=== PATIENT | female | born 1985 | race Caucasian/White ===

== ENCOUNTER 2016-10-26 03:16 | Emergency (ER) | payer OTHER ==
[2016-10-26] MEDS ORDERED: ONDANSETRON 4 MG/2 ML VIAL IVP STA (03:34)
[2016-10-26] MEDS ORDERED: SODIUM CHLORIDE 0.9% 1,000 ML IV STA ×2 (03:34)
[2016-10-26] MEDS ORDERED: KETOROLAC 30 MG/ML 1 ML VIAL IVP STA (03:35)
--- NOTE | 2016-10-26 03:41 | ED ---
Abdominal Pain HPI - General Chief Complaint: Abdominal Pain Stated Complaint: abd pain Time Seen by Provider: 10/26/16 03:20 Source: patient, RN notes reviewed Mode of arrival: ambulatory Limitations: no limitations - History of Present Illness Initial Comments: This is a 31-year-old female with a history of appendectomy and tubal ligation past who states she had the onset at about 9 PM last evening of mid abdominal sharp pain 10/10 severity with 5 episodes of nausea vomiting. She's had no diarrhea patient. She states last time she had pain like that was with labor. She has had no fevers chills sweats or other symptoms. She has no prior history of gallbladder disease or ulcers. No history of kidney stones. She points to the midepigastric area. She states she doesn't drink alcohol very often the last alcohol consumption was 4 days ago and that was only 2 drinks. She voices no other complaints at this time. No dysuria no hematuria. MD Complaint: abdominal pain - Related Data Previous Rx's Medication Instructions Recorded Dicyclomine [Bentyl] 10 mg PO TID PRN #10 capsule 10/26/16 Allergies Allergy/AdvReac Type Severity Reaction Status Date / Time No Known Allergies Allergy Verified 10/26/16 03:24 Review of Systems ROS Statement: Those systems with pertinent positive or pertinent negative responses have been documented in the HPI. ROS Other: All systems not noted in ROS Statement are negative. Past Medical History Past Medical History: No Reported History History of Any Multi-Drug Resistant Organisms: None Reported Past Surgical History: Appendectomy Additional Past Surgical History / Comment(s): partial fallopian tube Past Psychological History: No Psychological Hx Reported Smoking Status: Never smoker Past Alcohol Use History: None Reported Past Drug Use History: None Reported General Exam - General Exam Comments Initial Comments: This is a well-developed well-nourished awake alert oriented 3 female Limitations: no limitations General appearance: alert, anxious, in distress Head exam: Present: atraumatic, normocephalic, normal inspection Eye exam: Present: normal appearance, PERRL, EOMI. Absent: scleral icterus, conjunctival injection, periorbital swelling ENT exam: Present: normal exam, mucous membranes moist Neck exam: Present: normal inspection. Absent: tenderness, meningismus, lymphadenopathy Respiratory exam: Present: normal lung sounds bilaterally. Absent: respiratory distress, wheezes, rales, rhonchi, stridor Cardiovascular Exam: Present: regular rate, normal rhythm, normal heart sounds. Absent: systolic murmur, diastolic murmur, rubs, gallop, clicks GI/Abdominal exam: Present: soft, tenderness (Mild epigastric and right upper quadrant area tenderness palpation no guarding rebound masses or bruits), normal bowel sounds. Absent: distended, guarding, rebound, rigid Rectal exam: Present: deferred Extremities exam: Present: normal inspection, full ROM, normal capillary refill. Absent: tenderness, pedal edema, joint swelling, calf tenderness Back exam: Present: normal inspection Neurological exam: Present: alert, oriented X3, CN II-XII intact Psychiatric exam: Present: normal affect, normal mood Skin exam: Present: warm, dry, intact, normal color. Absent: rash Course Vital Signs 10/26/16 10/26/16 03:18 04:34 Temperature 97.2 F L Pulse Rate 83 67 Respiratory 20 18 Rate Blood Pressure 161/100 135/91 O2 Sat by Pulse 99 100 Oximetry - Reevaluation(s) Reevaluation #1: 10/26/16 04:47 Patient was feeling improved Medical Decision Making - Medical Decision Making Patient showing much improved this time and pain-free she'll be discharged - Lab Data Result diagrams: 10/26/16 03:40 10/26/16 03:40 Lab Results 10/26/16 10/26/16 10/26/16 Range/Units 03:40 03:40 03:40 WBC 15.5 H (3.8-10.6) k/uL RBC 4.89 (3.80-5.40) m/uL Hgb 13.5 (11.4-16.0) gm/dL Hct 39.4 (34.0-46.0) % MCV 80.5 (80.0-100.0) fL MCH 27.6 (25.0-35.0) pg MCHC 34.4 (31.0-37.0) g/dL RDW 13.5 (11.5-15.5) % Plt Count 358 (150-450) k/uL Neutrophils % 83 % Lymphocytes % 11 % Monocytes % 4 % Eosinophils % 1 % Basophils % 0 % Neutrophils # 12.9 H (1.3-7.7) k/uL Lymphocytes # 1.7 (1.0-4.8) k/uL Monocytes # 0.5 (0-1.0) k/uL Eosinophils # 0.1 (0-0.7) k/uL Basophils # 0.0 (0-0.2) k/uL Sodium 141 (137-145) mmol/L Potassium 4.2 (3.5-5.1) mmol/L Chloride 106 (98-107) mmol/L Carbon Dioxide 20 L (22-30) mmol/L Anion Gap 15 mmol/L BUN 12 (7-17) mg/dL Creatinine 0.60 (0.52-1.04) mg/dL Est GFR (MDRD) Af Amer >60 (>60 ml/min/1.73 sqM) Est GFR (MDRD) Non-Af >60 (>60 ml/min/1.73 sqM) Glucose 134 H (74-99) mg/dL Calcium 10.4 H (8.4-10.2) mg/dL Total Bilirubin 0.5 (0.2-1.3) mg/dL AST 33 (14-36) U/L ALT 39 (9-52) U/L Alkaline Phosphatase 102 (38-126) U/L Total Creatine Kinase 58 (30-135) U/L CK-MB (CK-2) 0.6 (0.0-2.4) ng/mL CK-MB (CK-2) Rel Index 1.0 Troponin I <0.012 (0.000-0.034) ng/mL Total Protein 7.8 (6.3-8.2) g/dL Albumin 4.6 (3.5-5.0) g/dL Amylase 44 (30-110) U/L Lipase 124 (23-300) U/L Urine Color Urine Appearance (Clear) Urine pH (5.0-8.0) Ur Specific Media (1.001-1.035) Urine Protein (Negative) Urine Glucose (UA) (Negative) Urine Ketones (Negative) Urine Blood (Negative) Urine Nitrite (Negative) Urine Bilirubin (Negative) Urine Urobilinogen (<2.0) mg/dL Ur Leukocyte Esterase (Negative) Ur Squamous Epith Cells (0-4) /hpf Amorphous Sediment (None) /hpf Urine Mucus (None) /hpf Urine HCG, Qual (Not Detectd) 10/26/16 10/26/16 Range/Units 03:49 03:49 WBC (3.8-10.6) k/uL RBC (3.80-5.40) m/uL Hgb (11.4-16.0) gm/dL Hct (34.0-46.0) % MCV (80.0-100.0) fL MCH (25.0-35.0) pg MCHC (31.0-37.0) g/dL RDW (11.5-15.5) % Plt Count (150-450) k/uL Neutrophils % % Lymphocytes % % Monocytes % % Eosinophils % % Basophils % % Neutrophils # (1.3-7.7) k/uL Lymphocytes # (1.0-4.8) k/uL Monocytes # (0-1.0) k/uL Eosinophils # (0-0.7) k/uL Basophils # (0-0.2) k/uL Sodium (137-145) mmol/L Potassium (3.5-5.1) mmol/L Chloride (98-107) mmol/L Carbon Dioxide (22-30) mmol/L Anion Gap mmol/L BUN (7-17) mg/dL Creatinine (0.52-1.04) mg/dL Est GFR (MDRD) Af Amer (>60 ml/min/1.73 sqM) Est GFR (MDRD) Non-Af (>60 ml/min/1.73 sqM) Glucose (74-99) mg/dL Calcium (8.4-10.2) mg/dL Total Bilirubin (0.2-1.3) mg/dL AST (14-36) U/L ALT (9-52) U/L Alkaline Phosphatase (38-126) U/L Total Creatine Kinase (30-135) U/L CK-MB (CK-2) (0.0-2.4) ng/mL CK-MB (CK-2) Rel Index Troponin I (0.000-0.034) ng/mL Total Protein (6.3-8.2) g/dL Albumin (3.5-5.0) g/dL Amylase (30-110) U/L Lipase (23-300) U/L Urine Color Yellow Urine Appearance Turbid H (Clear) Urine pH 8.0 (5.0-8.0) Ur Specific Media 1.015 (1.001-1.035) Urine Protein Trace H (Negative) Urine Glucose (UA) Negative (Negative) Urine Ketones Negative (Negative) Urine Blood Negative (Negative) Urine Nitrite Negative (Negative) Urine Bilirubin Negative (Negative) Urine Urobilinogen <2.0 (<2.0) mg/dL Ur Leukocyte Esterase Negative (Negative) Ur Squamous Epith Cells <1 (0-4) /hpf Amorphous Sediment Rare H (None) /hpf Urine Mucus Rare H (None) /hpf Urine HCG, Qual Not Detected (Not Detectd) - Radiology Data Radiology results: report reviewed (Imaging study shows no acute findings.), image reviewed Disposition Clinical Impression: Abdominal pain, Spastic colon Disposition: HOME SELF-CARE Condition: Good Instructions: Abdominal Pain (ED), Irritable Bowel Syndrome (ED) Prescriptions: Dicyclomine [Bentyl] 10 mg PO TID PRN #10 capsule PRN Reason: Pain Referrals: None,Stated [Primary Care Provider] - 1-2 days
[2016-10-26 03:49] LABS: Basophils % (A) 0 %; CH 27.7; CHCM 34.5; Eosinophils # (A) 0.1 k/uL (0-0.7); Eosinophils % (A) 1 %; HCT 39.4 % (34.0-46.0); HDW 2.58; HGB 13.5 gm/dL (11.4-16.0); Luc # (Auto) 0.21; Luc % (Auto) 1; Lymphocytes # (A) 1.7 k/uL (1.0-4.8); Lymphocytes % (A) 11 %; MCH 27.6 pg (25.0-35.0); MCHC 34.4 g/dL (31.0-37.0); MCV 80.5 fL (80.0-100.0); Monocytes # (A) 0.5 k/uL (0-1.0); Monocytes % (A) 4 %; Neutrophils # (A) 12.9 k/uL (1.3-7.7); Neutrophils % (A) 83 %; RBC 4.89 m/uL (3.80-5.40); RDW 13.5 % (11.5-15.5); WBC 15.5 k/uL (3.8-10.6); WBC (Perox) 15.24
[2016-10-26 03:59] LABS: ALT 39 U/L (9-52); AST 33 U/L (14-36); Alkaline Phosphatase 102 U/L (38-126); Amylase 44 U/L (30-110); Anion Gap 15 mmol/L; Blood Urea Nitrogen 12 mg/dL (7-17); Calcium 10.4 mg/dL (8.4-10.2); Carbon Dioxide 20 mmol/L (22-30); Chloride 106 mmol/L (98-107); Glucose 134 mg/dL (74-99); Non-African American GFR(MDRD) >60 (>60 ml/min/1.73 sqM); Potassium 4.2 mmol/L (3.5-5.1); Sodium 141 mmol/L (137-145); Total Bilirubin 0.5 mg/dL (0.2-1.3); Total Protein 7.8 g/dL (6.3-8.2)
[2016-10-26 04:01] LABS: Amorphous Sediment,Urine Rare /hpf; Appearance,Urine Turbid (Clear); Bilirubin,Urine Negative (Negative); Glucose,Urine (UA) Negative (Negative); Ketones,Urine Negative (Negative); Leukocyte Esterase,Urine Negative (Negative); Mucus,Urine Rare /hpf; Nitrite,Urine Negative (Negative); Particle Count 29799; Protein,Urine Trace (Negative); Specific Gravity,Urine 1.015 (1.001-1.035); Squamous Epithelial Cell,Urine <1 /hpf (0-4); UA Billing (MACRO vs. MICRO) MICRO; Urobilinogen,Urine <2.0 mg/dL (<2.0)
[2016-10-26 04:13] LABS: Creatine Kinase 58 U/L (30-135)
--- NOTE | 2016-10-26 04:25 | XR ---
EXAM: XR Abdomen Complete With XR Chest CLINICAL HISTORY: Reason: Pain TECHNIQUE: Frontal view of the chest, frontal view of the abdomen/pelvis and upright view of the abdomen. COMPARISON: No relevant prior studies available. FINDINGS: Lungs: Unremarkable. No consolidation. Pleural space: Unremarkable. No pneumothorax. Heart: Unremarkable. No cardiomegaly. Mediastinum: Unremarkable. Gastrointestinal tract: Moderate amount of stool in the colon. No dilation. Bones/joints: Unremarkable. IMPRESSION: No acute findings.
[2016-10-26 04:26] LABS: Creatine Kinase MB 0.6 ng/mL (0.0-2.4); Troponin I <0.012 ng/mL (0.000-0.034)
[2016-10-26 04:35] VITALS: BP 135/91; PULSE 67; RESP 18
[2016-10-26 04:58] VITALS: TEMP 98.6
== END 2016-10-26 04:58 | disposition home or self-care (01) ==
LOC: EC 03:16
DX: K58.9 Irritable bowel syndrome, unspecified (principal); R11.2 Nausea with vomiting, unspecified; Z98.51 Tubal ligation status; Z90.49 Acquired absence of other specified parts of digestive tract
CPT/HCPCS: 36415; 80053; 82150; 82550; 82553; 83690; 84484; 85025; 81001; 81025; 74022; 99284; 96374; 96375; 96361; J2405; J1885

== ENCOUNTER 2020-08-02 17:10 | Inpatient (IN) | payer OTHER ==
[2020-08-02 17:59] LABS: Basophils % (A) 1 %; Eosinophils # (A) 0.1 k/uL (0-0.7); Eosinophils % (A) 1 %; HCT 39.6 % (34.0-46.0); HGB 13.7 gm/dL (11.4-16.0); Lymphocytes # (A) 1.1 k/uL (1.0-4.8); Lymphocytes % (A) 13 %; MCH 27.3 pg (25.0-35.0); MCHC 34.5 g/dL (31.0-37.0); MCV 79.1 fL (80.0-100.0); Mean Platelet Volume 6.8; Monocytes # (A) 0.3 k/uL (0-1.0); Monocytes % (A) 3 %; Neutrophils # (A) 6.9 k/uL (1.3-7.7); Neutrophils % (A) 81 %; Platelet Count 437 k/uL (150-450); RDW 13.6 % (11.5-15.5); WBC 8.5 k/uL (3.8-10.6)
[2020-08-02 18:06] LABS: Amorphous Sediment,Urine Rare /hpf; Appearance,Urine Turbid (Clear); Bilirubin,Urine Negative (Negative); Blood,Urine Negative (Negative); Calcium Oxalate Crystals,Urine Few /hpf; Color,Urine Yellow; Glucose,Urine (UA) Negative (Negative); Ketones,Urine Trace (Negative); Leukocyte Esterase,Urine Negative (Negative); Mucus,Urine Rare /hpf; Nitrite,Urine Negative (Negative); Protein,Urine 1+ (Negative); RBC,Urine 3 /hpf (0-5); Specific Gravity,Urine 1.016 (1.001-1.035); Urobilinogen,Urine <2.0 mg/dL (<2.0); WBC,Urine 1 /hpf (0-5)
[2020-08-02 18:11] LABS: ALT 518 U/L (4-34); AST 615 U/L (14-36); African American GFR (CKD) >90 (>60 ml/min/1.73 sqM); Albumin 4.9 g/dL (3.5-5.0); Alkaline Phosphatase 169 U/L (38-126); Amylase 58 U/L (30-110); Anion Gap 14 mmol/L; Blood Urea Nitrogen 11 mg/dL (7-17); Calcium 10.2 mg/dL (8.4-10.2); Carbon Dioxide 22 mmol/L (22-30); Chloride 105 mmol/L (98-107); Glucose 148 mg/dL (74-99); Lipase 207 U/L (23-300); Non-African American GFR(CKD) >90 (>60 ml/min/1.73 sqM); Potassium 3.8 mmol/L (3.5-5.1); Sodium 141 mmol/L (137-145); Total Bilirubin 1.7 mg/dL (0.2-1.3); Total Protein 8.1 g/dL (6.3-8.2)
[2020-08-02] MEDS ORDERED: HYDROmorphone 0.5 MG/0.5 ML SYRINGE IVP STA (18:36)
[2020-08-02] MEDS ORDERED: ONDANSETRON 4 MG/2 ML VIAL IVP STA (18:37)
--- NOTE | 2020-08-02 18:37 | ED ---
General Adult HPI - General Chief complaint: Abdominal Pain Stated complaint: Abd pain Time Seen by Provider: 08/02/20 17:20 Source: patient, RN notes reviewed, old records reviewed Mode of arrival: wheelchair Limitations: no limitations - History of Present Illness Initial comments: This is a 35-year-old female with past medical history significant for removal of the fallopian tube and appendectomy. Patient comes in today stating last evening she was a little bit nauseated but then today about 1:00 she started having pretty significant epigastric abdominal pain which she states feels a lot like labor. Patient states she's very nauseated but hasn't vomited. Patient denies any diarrhea per patient denies any lower abdominal pain. Patient denies any chest pain difficulty breathing or shortness of breath per patient denies any fever chills or cough. - Related Data Home Medications Medication Instructions Recorded Confirmed Ferrous Sulfate [Feosol] 325 mg PO DAILY 08/02/20 08/02/20 L.acidoph,Paracasei, B.lactis 1 cap PO DAILY 08/02/20 08/02/20 [Probiotic] Magnesium Oxide 400 mg PO DAILY 08/02/20 08/02/20 Multivitamins, Thera [Multivitamin 1 tab PO DAILY 08/02/20 08/02/20 (formulary)] Allergies Allergy/AdvReac Type Severity Reaction Status Date / Time No Known Allergies Allergy Verified 08/02/20 19:54 Review of Systems ROS Statement: Those systems with pertinent positive or pertinent negative responses have been documented in the HPI. ROS Other: All systems not noted in ROS Statement are negative. Past Medical History Past Medical History: No Reported History History of Any Multi-Drug Resistant Organisms: None Reported Past Surgical History: Appendectomy Additional Past Surgical History / Comment(s): partial fallopian tube Past Psychological History: No Psychological Hx Reported Smoking Status: Never smoker Past Alcohol Use History: None Reported Past Drug Use History: None Reported General Exam - General Exam Comments Initial Comments: GENERAL: Patient is well-developed and well-nourished. Patient is nontoxic and well- hydrated and is in mild distress. ENT: Neck is soft and supple. No significant lymphadenopathy is noted. Oropharynx is clear. Moist mucous membranes. Neck has full range of motion without eliciting any pain. EYES: The sclera were anicteric and conjunctiva were pink and moist. Extraocular movements were intact and pupils were equal round and reactive to light. Eyelids were unremarkable. PULMONARY: Unlabored respirations. Good breath sounds bilaterally. No audible rales rhonchi or wheezing was noted. CARDIOVASCULAR: There is a regular rate and rhythm without any murmurs gallops or rubs. ABDOMEN: Patient has mild epigastric abdominal pain there's no rebound or guarding SKIN: Skin is clear with no lesions or rashes and otherwise unremarkable. NEUROLOGIC: Patient is alert and oriented x3. Cranial nerves II through XII are grossly intact. Motor and sensory are also intact. Normal speech, volume and content. Symmetrical smile. MUSCULOSKELETAL: Normal extremities with adequate strength and full range of motion. No lower extremity swelling or edema. No calf tenderness. LYMPHATICS: No significant lymphadenopathy is noted PSYCHIATRIC: Normal psychiatric evaluation. Limitations: no limitations Course Vital Signs 08/02/20 17:18 Temperature 97.4 F L Pulse Rate 78 Respiratory 24 Rate Blood Pressure 176/105 O2 Sat by Pulse 100 Oximetry Medical Decision Making - Medical Decision Making Patient did receive some relief from the Dilaudid. Ultrasound showed a dilated gallbladder consistent with possible cholecystitis. I spoke with Dr. Mello she agreed to admit the patient admitted the patient wrote admitting orders. - Lab Data Result diagrams: 08/02/20 17:45 08/02/20 17:45 Lab Results 08/02/20 08/02/20 08/02/20 Range/Units 17:45 17:45 17:45 WBC 8.5 (3.8-10.6) k/uL RBC 5.00 (3.80-5.40) m/uL Hgb 13.7 (11.4-16.0) gm/dL Hct 39.6 (34.0-46.0) % MCV 79.1 L (80.0-100.0) fL MCH 27.3 (25.0-35.0) pg MCHC 34.5 (31.0-37.0) g/dL RDW 13.6 (11.5-15.5) % Plt Count 437 (150-450) k/uL MPV 6.8 Neutrophils % 81 % Lymphocytes % 13 % Monocytes % 3 % Eosinophils % 1 % Basophils % 1 % Neutrophils # 6.9 (1.3-7.7) k/uL Lymphocytes # 1.1 (1.0-4.8) k/uL Monocytes # 0.3 (0-1.0) k/uL Eosinophils # 0.1 (0-0.7) k/uL Basophils # 0.0 (0-0.2) k/uL Sodium 141 (137-145) mmol/L Potassium 3.8 (3.5-5.1) mmol/L Chloride 105 (98-107) mmol/L Carbon Dioxide 22 (22-30) mmol/L Anion Gap 14 mmol/L BUN 11 (7-17) mg/dL Creatinine 0.66 (0.52-1.04) mg/dL Est GFR (CKD-EPI)AfAm >90 (>60 ml/min/1.73 sqM) Est GFR (CKD-EPI)NonAf >90 (>60 ml/min/1.73 sqM) Glucose 148 H (74-99) mg/dL Calcium 10.2 (8.4-10.2) mg/dL Total Bilirubin 1.7 H (0.2-1.3) mg/dL AST 615 H (14-36) U/L ALT 518 H (4-34) U/L Alkaline Phosphatase 169 H (38-126) U/L Total Protein 8.1 (6.3-8.2) g/dL Albumin 4.9 (3.5-5.0) g/dL Amylase 58 (30-110) U/L Lipase 207 (23-300) U/L Urine Color Yellow Urine Appearance Turbid H (Clear) Urine pH 8.0 (5.0-8.0) Ur Specific Downs 1.016 (1.001-1.035) Urine Protein 1+ H (Negative) Urine Glucose (UA) Negative (Negative) Urine Ketones Trace H (Negative) Urine Blood Negative (Negative) Urine Nitrite Negative (Negative) Urine Bilirubin Negative (Negative) Urine Urobilinogen <2.0 (<2.0) mg/dL Ur Leukocyte Esterase Negative (Negative) Urine RBC 3 (0-5) /hpf Urine WBC 1 (0-5) /hpf Calcium Oxalate Crystal Few H (None) /hpf Amorphous Sediment Rare H (None) /hpf Urine Mucus Rare H (None) /hpf Disposition Clinical Impression: Cholecystitis, Cholelithiasis Disposition: ADMITTED IP TO THIS [facility] Referrals: None,Stated [Primary Care Provider] - 1-2 days Time of Disposition: 20:33
[2020-08-02] MEDS ORDERED: SODIUM CHLORIDE 0.9% 500 ML 500 ML IV ONE (18:47)
--- NOTE | 2020-08-02 19:45 | US ---
EXAMINATION TYPE: US gallbladder DATE OF EXAM: 08/02/2020 COMPARISON: NONE CLINICAL HISTORY: Upper abdominal pain with elevated liver enzymes. Pain and elevated liver enzymes. Hx appendectomy. EXAM MEASUREMENTS: Liver Length: 17.5 cm Gallbladder Wall: 0.29 cm CBD: Not seen with certainty, measured at 0.3 cm Right Kidney: 11.1 x 6.8 x 5.3 cm Limited due to overlying bowel gas. Pancreas: Very limited visibility. Liver: Appears heterogeneous. Measures upper limits of normal. Gallbladder: Appears distended measuring 11.2 cm in length. Multiple hyperechoic foci with posterior shadowing and twinkle artifact seen within the gallbladder. Evidence for sonographic Goodman's sign: No CBD: Limited visibility, measured at 0.3 cm. Right Kidney: No hydronephrosis or masses seen IMPRESSION: Multiple gallstones. No dilated ducts. No discrete liver mass. Gallbladder is slightly enlarged and m easures 11.2 cm in length. Cholecystitis is possible.
[2020-08-02] MEDS ORDERED: SODIUM CHLORIDE 0.9% 1,000 ML IV ONE ×2 (20:34→21:19)
[2020-08-02] MEDS ORDERED: ONDANSETRON 4 MG/2 ML VIAL IVP PRN (20:35)
[2020-08-02] MEDS ORDERED: NALOXONE 0.4 MG/ML 1 ML VIAL IV PRN (21:12)
[2020-08-02] MEDS: PIPERACILLIN-TAZOBACTAM 3.375 GM in SODIUM CHLORIDE 0.9% 100 ML IVPB SCH (21:53)
[2020-08-02] MEDS: HYDROmorphone 0.5 MG/0.5 ML SYRINGE IVP PRN (23:02)
[2020-08-03] MEDS: PIPERACILLIN-TAZOBACTAM 3.375 GM in SODIUM CHLORIDE 0.9% 100 ML IVPB SCH ×3 (05:38→23:42)
[2020-08-03] MEDS ORDERED: SCOPOLAMINE 1.5MG/72HR PATCH TRANSDERM SCH (07:00)
[2020-08-03 07:26] LABS: Basophils % (A) 0 %; Eosinophils # (A) 0.1 k/uL (0-0.7); Eosinophils % (A) 1 %; HCT 37.6 % (34.0-46.0); HGB 12.1 gm/dL (11.4-16.0); Lymphocytes # (A) 1.6 k/uL (1.0-4.8); Lymphocytes % (A) 16 %; MCH 26.2 pg (25.0-35.0); MCHC 32.1 g/dL (31.0-37.0); MCV 81.5 fL (80.0-100.0); Mean Platelet Volume 6.6; Monocytes # (A) 0.6 k/uL (0-1.0); Monocytes % (A) 5 %; Neutrophils # (A) 8.1 k/uL (1.3-7.7); Neutrophils % (A) 77 %; Platelet Count 379 k/uL (150-450); RBC 4.61 m/uL (3.80-5.40); RDW 13.9 % (11.5-15.5); WBC 10.5 k/uL (3.8-10.6)
[2020-08-03 07:44] LABS: ALT 462 U/L (4-34); AST 297 U/L (14-36); African American GFR (CKD) >90 (>60 ml/min/1.73 sqM); Albumin 4.2 g/dL (3.5-5.0); Alkaline Phosphatase 148 U/L (38-126); Anion Gap 10 mmol/L; Blood Urea Nitrogen 12 mg/dL (7-17); Calcium 9.3 mg/dL (8.4-10.2); Carbon Dioxide 25 mmol/L (22-30); Chloride 106 mmol/L (98-107); Glucose 124 mg/dL (74-99); Non-African American GFR(CKD) >90 (>60 ml/min/1.73 sqM); Potassium 4.3 mmol/L (3.5-5.1); Sodium 141 mmol/L (137-145); Total Bilirubin 1.2 mg/dL (0.2-1.3); Total Protein 7.2 g/dL (6.3-8.2)
[2020-08-03 08:18] LABS: Hepatitis A Antibody IgM Non-Reactive (Non-Reactive); Hepatitis B Core IgM Non-Reactive (Non-Reactive); Hepatitis B Surface Antigen Non-Reactive (Non-Reactive); Hepatitis C IgG Antibody Non-Reactive (Non-Reactive)
[2020-08-03] MEDS: HEPARIN SODIUM,PORCINE/PF 5,000 UNIT/0.5 ML SYRINGE SQ SCH ×2 (08:58→22:29)
--- NOTE | 2020-08-03 12:17 | P.GSHP ---
History of Present Illness H&P Date: 08/03/20 CHIEF COMPLAINT: Cholecystitis with choledocholithiasis HISTORY OF PRESENT ILLNESS: The patient is a 35-year-old female who presents with history of epigastric including right upper quadrant abdominal pain that started yesterday after eating fatty greasy food. Her pain radiated to the right upper quadrant and 10 out of 10 rate into the right upper back. Just resistant history of gallstones last attack over 2 years ago. She presented with elevated liver enzymes including transaminitis from gallstones. She underwent diagnostic studies for her gallbladder. Separately her clinical picture is consistent with cholecystitis. Patient is admitted for immediate surgical intervention PAST MEDICAL HISTORY: Please see list PAST SURGICAL HISTORY: Please see list MEDICATIONS: Please see list ALLERGIES: Please see list SOCIAL HISTORY: Please see list FAMILY HISTORY: Please see list REVIEW OF ORGAN SYSTEMS: CONSTITUTIONAL: No reports of fevers or chills. HEENT: Denies any troubles with the vision or hearing. ENDOCRINE: No reports of hypothyroidism. No diabetes. RESPIRATORY: No recent pneumonias. CARDIOVASCULAR: Denies chest pain or palpitations GI: No blood in stools or constipation. MUSCULOSKELETAL: Has occasional joint pain including back pain. NEURO: No seizure disorders or headaches. No recent stroke. PSYCH: No depression or suicidal ideation. GENITOURINARY: No active blood in urine. No urinary hesitancy. HEMATOLOGIC: No personal or family history of DVTs or pulmonary emboli. SKIN: No skin cancer. PHYSICAL EXAM: VITAL SIGNS: Afebrile vital signs stable GENERAL: Well-developed pleasant in no acute distress. HEENT: No scleral icterus. Extraocular movements grossly intact. Moist buccal mucosa. NECK: Supple without lymphadenopathy. CHEST: Unlabored respirations. Equal bilateral excursions. CARDIOVASCULAR: Regular rate regular rhythm rhythm. Distal 2+ pulses. ABDOMEN: Soft, nondistended. Tender along the epigastrium and right upper quadrant. MUSCULOSKELETAL: No clubbing, cyanosis, or edema. NEURO: Cranial nerves II to XII within normal limits. No focal or lateralizing signs. PSYCH: Alert and oriented to person, place and time. SKIN: Well-perfused good skin turgor. LABS: Alkaline phosphatase including ALT and AST are elevated over 100. WBC also increased from over 8 to over 10 STUDIES: Ultrasound the gallbladder independently reviewed demonstrating multiple mobile gallstones. This is my independent interpretation. REPORT: Common bile duct within normal limits less than 5 mm ASSESSMENT: 1. Acute cholecystitis with cystic duct obstruction 2. Transaminitis with changes choledocholithiasis PLAN: 1. Will need a robotic cholecystectomy possible open. Benefits and risks were described. 2. Heparin for DVT prophylaxis 5000 units. 3. Antibiotic prophylaxis. Past Medical History Past Medical History: No Reported History History of Any Multi-Drug Resistant Organisms: None Reported Past Surgical History: Appendectomy Additional Past Surgical History / Comment(s): partial fallopian tube taken out at time of appendectomy Past Anesthesia/Blood Transfusion Reactions: No Reported Reaction Smoking Status: Former smoker - Past Family History Father Family Medical History: Eye Disorder, Hypertension, Thyroid Disorder Additional Family Medical History / Comment(s): Eye cancer, heart cath Medications and Allergies Home Medications Medication Instructions Recorded Confirmed Type Ferrous Sulfate [Feosol] 325 mg PO DAILY 08/02/20 08/02/20 History L.acidoph,Paracasei, B.lactis 1 cap PO DAILY 08/02/20 08/02/20 History [Probiotic] Magnesium Oxide 400 mg PO DAILY 08/02/20 08/02/20 History Multivitamins, Thera [Multivitamin 1 tab PO DAILY 08/02/20 08/02/20 History (formulary)] Allergies Allergy/AdvReac Type Severity Reaction Status Date / Time No Known Allergies Allergy Verified 08/02/20 19:54 Surgical - Exam Vital Signs Temp Pulse Resp BP Pulse Ox 97.4 F L 78 24 176/105 100 08/02/20 17:18 08/02/20 17:18 08/02/20 17:18 08/02/20 17:18 08/02/20 17:18 Results - Labs 08/03/20 06:35 08/03/20 06:35 Abnormal Lab Results - Last 24 Hours (Table) 08/02/20 08/02/20 08/02/20 Range/Units 17:45 17:45 17:45 MCV 79.1 L (80.0-100.0) fL Neutrophils # (1.3-7.7) k/uL Glucose 148 H (74-99) mg/dL Total Bilirubin 1.7 H (0.2-1.3) mg/dL AST 615 H (14-36) U/L ALT 518 H (4-34) U/L Alkaline Phosphatase 169 H (38-126) U/L Urine Appearance Turbid H (Clear) Urine Protein 1+ H (Negative) Urine Ketones Trace H (Negative) Calcium Oxalate Crystal Few H (None) /hpf Amorphous Sediment Rare H (None) /hpf Urine Mucus Rare H (None) /hpf 08/03/20 08/03/20 Range/Units 06:35 06:35 MCV (80.0-100.0) fL Neutrophils # 8.1 H (1.3-7.7) k/uL Glucose 124 H (74-99) mg/dL Total Bilirubin (0.2-1.3) mg/dL AST 297 H (14-36) U/L ALT 462 H (4-34) U/L Alkaline Phosphatase 148 H (38-126) U/L Urine Appearance (Clear) Urine Protein (Negative) Urine Ketones (Negative) Calcium Oxalate Crystal (None) /hpf Amorphous Sediment (None) /hpf Urine Mucus (None) /hpf Diabetes panel 08/02/20 08/03/20 Range/Units 17:45 06:35 Sodium 141 141 (137-145) mmol/L Potassium 3.8 4.3 (3.5-5.1) mmol/L Chloride 105 106 (98-107) mmol/L Carbon Dioxide 22 25 (22-30) mmol/L BUN 11 12 (7-17) mg/dL Creatinine 0.66 0.81 (0.52-1.04) mg/dL Glucose 148 H 124 H (74-99) mg/dL Calcium 10.2 9.3 (8.4-10.2) mg/dL AST 615 H 297 H (14-36) U/L ALT 518 H 462 H (4-34) U/L Alkaline Phosphatase 169 H 148 H (38-126) U/L Total Protein 8.1 7.2 (6.3-8.2) g/dL Albumin 4.9 4.2 (3.5-5.0) g/dL Calcium panel 08/02/20 08/03/20 Range/Units 17:45 06:35 Calcium 10.2 9.3 (8.4-10.2) mg/dL Albumin 4.9 4.2 (3.5-5.0) g/dL Pituitary panel 08/02/20 08/03/20 Range/Units 17:45 06:35 Sodium 141 141 (137-145) mmol/L Potassium 3.8 4.3 (3.5-5.1) mmol/L Chloride 105 106 (98-107) mmol/L Carbon Dioxide 22 25 (22-30) mmol/L BUN 11 12 (7-17) mg/dL Creatinine 0.66 0.81 (0.52-1.04) mg/dL Glucose 148 H 124 H (74-99) mg/dL Calcium 10.2 9.3 (8.4-10.2) mg/dL Adrenal panel 08/02/20 08/03/20 Range/Units 17:45 06:35 Sodium 141 141 (137-145) mmol/L Potassium 3.8 4.3 (3.5-5.1) mmol/L Chloride 105 106 (98-107) mmol/L Carbon Dioxide 22 25 (22-30) mmol/L BUN 11 12 (7-17) mg/dL Creatinine 0.66 0.81 (0.52-1.04) mg/dL Glucose 148 H 124 H (74-99) mg/dL Calcium 10.2 9.3 (8.4-10.2) mg/dL Total Bilirubin 1.7 H 1.2 (0.2-1.3) mg/dL AST 615 H 297 H (14-36) U/L ALT 518 H 462 H (4-34) U/L Alkaline Phosphatase 169 H 148 H (38-126) U/L Total Protein 8.1 7.2 (6.3-8.2) g/dL Albumin 4.9 4.2 (3.5-5.0) g/dL Assessment and Plan (1) Transaminitis Current Visit: Yes Status: Acute Code(s): R74.01 - ELEVATION OF LEVELS OF LIVER TRANSAMINASE LEVELS SNOMED Code(s): 488592069 (2) Cholecystitis Current Visit: Yes Status: Acute Code(s): K81.9 - CHOLECYSTITIS, UNSPECIFIED SNOMED Code(s): 67621248 (3) Cholelithiasis Current Visit: Yes Status: Acute Code(s): K80.20 - CALCULUS OF GALLBLADDER W/O CHOLECYSTITIS W/O OBSTRUCTION SNOMED Code(s): 487111447
[2020-08-03] MEDS ORDERED: INDOCYANINE GREEN 25 MG VIAL IV STA (12:29)
[2020-08-03] MEDS ORDERED: DEXAMETHASONE SOD PHOSPHATE 4 MG/ML 1 ML VIAL IV ONE (12:40)
[2020-08-03] MEDS ORDERED: ONDANSETRON 4 MG/2 ML VIAL IVP ONE (12:40)
[2020-08-03] MEDS ORDERED: IV FLUID CONTINUATION 1,000 ML IV ONE (12:41)
[2020-08-03] MEDS ORDERED: NEOSTIGMINE 1 MG/ML 10 ML VIAL ONE (13:06)
[2020-08-03] MEDS ORDERED: SUCCINYLCHOLINE CHLORIDE 100 MG/5 ML SYR IV ONE (13:06)
[2020-08-03] MEDS ORDERED: ROCURONIUM 10 MG/ML (5 ML VIAL) IV ONE (13:06)
[2020-08-03] MEDS ORDERED: ESMOLOL 100 MG/10 ML VIAL ONE (13:06)
[2020-08-03] MEDS ORDERED: GLYCOPYRROLATE 0.2 MG/ML 2 ML VIAL ONE (13:06)
[2020-08-03] MEDS ORDERED: LIDOCAINE 1% INJ 10MG/ML (20 ML MDV) ONE (13:06)
[2020-08-03] MEDS ORDERED: KETOROLAC 15 MG/ML 1 ML VIAL ONE (13:06)
[2020-08-03] MEDS ORDERED: fentaNYL (PF) 50 MCG/ML 2 ML AMP ONE (13:06)
[2020-08-03] MEDS ORDERED: PROPOFOL 10 MG/ML 20 ML VIAL IV ONE (13:06)
[2020-08-03] MEDS ORDERED: LABETALOL 5 MG/ML VIAL MDV ONE (13:06)
[2020-08-03] MEDS ORDERED: MIDAZOLAM 2 MG/2 ML VIAL ONE (13:06)
[2020-08-03] MEDS ORDERED: LIDOCAINE 1%-EPI 1:100,000 20 ML VIAL SQ ONE ×2 (13:35→14:00)
[2020-08-03] MEDS ORDERED: LACTATED RINGERS 1,000 ML IV ONE (14:36)
[2020-08-03] MEDS ORDERED: METOCLOPRAMIDE 5 MG/ML 2 ML VIAL IVP PRN (16:00)
--- NOTE | 2020-08-03 16:00 | P.OP ---
Date of Procedure: 08/03/20 Description of Procedure: SURGEON: RUBY MASSEY MD PREOPERATIVE DIAGNOSES: 1. Acute cholecystitis with right upper quadrant/epigastric abdominal pain 2. Cholelithiasis 3. Elevated liver enzymes with transaminitis 4. Iron deficiency anemia POSTOPERATIVE DIAGNOSES: 1. Acute cholecystitis with cystic duct obstruction due to gallstones and hydrops 2. Common bile duct obstruction due to external compression gallstones 3. Elevated liver enzymes with transaminitis 4. Iron deficiency anemia 5. Right upper quadrant omental to abdominal adhesions OPERATION: 1. Robotic-assisted da Monica Xi laparoscopic lysis of adhesions over 1 hour 2. Robotic-assisted da Monica Xi laparoscopic cholecystectomy, multiport with FIREFLY ESTIMATED BLOOD LOSS: 50 mL. SPECIMENS REMOVED: Gallbladder. COMPLICATIONS: None. Anesthesia: GETA, local Condition: stable Disposition: floor Operative Findings: 1. 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 Right upper quadrant greater omentum to abdominal wall adhesions requiring lysis of adhesions 3. Robotic blue staple load fired across the infundibulum and cystic duct junction to prevent injury to common bile duct 4. Indocyanine green confirms acute cholecystitis with lack of contrast in gallbladder 5. Indocyanine green with illumination of common bile duct 6. Common bile duct within normal limits, without dilation INDICATIONS: The patient is a 35 year-old female who presents with epigastric right upper quadrant pain, symptomatic gallstones and clinical features of acute cholecystitis. Surgical intervention with cholecystectomy was described. Robotic assisted laparoscopic approach was described. Benefits and risks of the procedure including but not limited to bleeding, infection, injury to the biliary tree was reviewed. Informed consent was obtained. DESCRIPTION OF PROCEDURE: Patient was brought to the operating room, placed in supine position. After general induction, the abdomen had been prepped and draped in standard sterile fashion. The robotic da Monica XI system was primed. After a timeout protocol was performed, the patient had been prepped and draped in standard sterile fashion. The patient was injected with indocyanine green. A 5 mm 0 degrees laparoscopic trocar entry was performed along the left upper quadrant. The abdomen insufflated to 15 mmHg pressure which was tolerated well. Diagnostic laparoscopy demonstrated no injury to bowel viscera or mesentery. The liver surface was unremarkable. A moderately distended gallbladder was identified adding complexity to the case. Next, two 8 mm robotic ports were placed along the right upper abdomen. The camera 8-mm port was maintained along the epigastrium. Another 8 mm port was placed along the left upper abdominal wall after exchanging the 5 mm port. Please note that the ports were placed at least 10 to 15 cm away from the target anatomy of the gallbladder. The robot was docked along the left lateral abdomen. The patient was repositioned in reverse Trendelenburg position at 21 with the right side up 70. Using a grasper for arm 3, a grasper for arm 4, including hook cautery for arm 1, the robotic system was docked and primed as described. Instruments were interchanged by the construction assistant including hook cautery, Bovie cautery and clip appliers. Additional instruments including vessel sealer, robotic suction front desk associate, robotic stapler were made available. I had sat at the console. The right upper quadrant was obscured by omental adhesions to the right lateral abdominal wall which required lysis of adhesions. The gallbladder cystic structures were encased in surrounding tissue adding complexity to the case and requiring extensive lysis of adhesions using blunt and sharp dissection using vessel sealer including hook artery for over one hour. The gallbladder was reflected towards the dome of the liver. The gallbladder was moderately distended adding complexity to the case. Edema was found along the cystic triangle including infundibulum. Initial dissection was performed on the gallbladder infundibulum using indocyanine green to illuminate the cystic duct and common bile duct. Due to moderate distention of the infundibulum, dome down technique was performed removing the gallbladder from the hepatic fossa starting from the fundus towards the infundibulum. Using a sponge, the liver was reflected towards the diaphragm and starting at the gallbladder fundus, hook cautery was used between the liver and the gallbladder. Additionally, easy bleeding from the liver was identified and controlled with sponge with pressure. As the gallbladder was dissected from the hepatic fossa, hemostasis was checked using vessel sealer along the posterior gallbladder. Next, indocyanine green was used to confirm the common bile duct as well as cystic duct. The entire gallbladder was without contrast consistent with acute cholecystitis. Redundancy of the infundibulum was found consistent of large over 2 cm gallstone impacted in the infundibulum causing cystic duct obstruction. The infundibulum was retracted laterally away from the common bile duct. The left upper quadrant trocar was exchanged for a 12 mm robotic trocar. FIREFLY was used to identify the common bile duct. Robotic 45 mm blue staple load was fired across the junction of the infundibulum and cystic duct as- assisted structures were edematous. Additionally, gallstone was impacted along the neck of the gallbladder. The abdomen was irrigated with normal saline solution of over 200 mL. Indocyanine green was used to confirm no bile leak from the staple line. Sponges were removed from the abdomen. The robot was undocked. I re-scrubbed into the case. A 10 mm Endo Catch bag was used to remove the gallbladder in total via the left upper quadrant incision after widening the incision. The specimen was removed from the abdominal cavity. Rupesh Ariza and 0 Vicryl was used to close the fascial defect of the left upper quadrant. All pneumoperitoneum instruments were evacuated from the abdominal cavity. The incisions were cleansed using dilute hydrogen peroxide. The incisions were reapproximated using 4-0 Monocryl in an interrupted subcuticular fashion. Please note along the trocar sites, local anesthetic was placed as a field block prior to insertion of all instruments. Liquid glue was applied to the skin. Optifoam was placed along the left upper quadrant. At the end of the procedure needle, sponge, and instrument count had been verified correct by the surgical services director. The patient was transferred to postanesthesia care unit in stable condition. Intraoperative films were shared with the patient's family who were pleased with the level of care. COMPLEXITY: Features of hydrops acute cholecystitis due to large impacted gallstone over 2 cm was identified requiring extensive lysis of adhesions due to surrounding edema and adhesions of the right upper quadrant including along the gallbladder. Over 1 hour used for extensive lysis of adhesions performed.
[2020-08-03] MEDS ORDERED: HYDROmorphone 0.5 MG/0.5 ML SYRINGE IVP ONE ×3 (16:15→16:50)
[2020-08-03] MEDS ORDERED: HYDROmorphone 0.5 MG/0.5 ML SYRINGE IM ONE (16:15)
[2020-08-03] MEDS: ACETAMINOPHEN TAB 500 MG TAB PO SCH (22:12)
[2020-08-03] MEDS: KETOROLAC 15 MG/ML 1 ML VIAL IVP SCH (22:24)
[2020-08-03] MEDS: DOCUSATE 100 MG CAP PO SCH (22:29)
[2020-08-04] MEDS: ACETAMINOPHEN TAB 500 MG TAB PO SCH ×3 (00:40→11:36)
[2020-08-04] MEDS: PIPERACILLIN-TAZOBACTAM 3.375 GM in SODIUM CHLORIDE 0.9% 100 ML IVPB SCH ×2 (01:00→10:21)
[2020-08-04] MEDS: HYDROmorphone 0.5 MG/0.5 ML SYRINGE IVP PRN (02:12)
[2020-08-04] MEDS: KETOROLAC 15 MG/ML 1 ML VIAL IVP SCH ×2 (05:56→11:37)
[2020-08-04 06:12] LABS: Basophils % (A) 0 %; Eosinophils % (A) 0 %; HCT 27.5 % (34.0-46.0); Lymphocytes # (A) 1.5 k/uL (1.0-4.8); Lymphocytes % (A) 11 %; MCH 27.4 pg (25.0-35.0); MCHC 33.1 g/dL (31.0-37.0); MCV 82.8 fL (80.0-100.0); Mean Platelet Volume 6.6; Monocytes # (A) 0.8 k/uL (0-1.0); Monocytes % (A) 6 %; Neutrophils # (A) 11.9 k/uL (1.3-7.7); Neutrophils % (A) 83 %; Platelet Count 376 k/uL (150-450); RBC 3.32 m/uL (3.80-5.40); RDW 14.2 % (11.5-15.5); WBC 14.4 k/uL (3.8-10.6)
[2020-08-04 06:34] LABS: HGB 9.1 gm/dL (11.4-16.0)
[2020-08-04 06:51] LABS: ALT 283 U/L (4-34); AST 104 U/L (14-36); African American GFR (CKD) >90 (>60 ml/min/1.73 sqM); Albumin 3.3 g/dL (3.5-5.0); Alkaline Phosphatase 113 U/L (38-126); Anion Gap 7 mmol/L; Blood Urea Nitrogen 17 mg/dL (7-17); Calcium 8.3 mg/dL (8.4-10.2); Carbon Dioxide 24 mmol/L (22-30); Chloride 106 mmol/L (98-107); Glucose 115 mg/dL (74-99); Non-African American GFR(CKD) 78 (>60 ml/min/1.73 sqM); Potassium 4.7 mmol/L (3.5-5.1); Sodium 137 mmol/L (137-145); Total Bilirubin 0.7 mg/dL (0.2-1.3); Total Protein 5.8 g/dL (6.3-8.2)
[2020-08-04] MEDS: HEPARIN SODIUM,PORCINE/PF 5,000 UNIT/0.5 ML SYRINGE SQ SCH (08:05)
[2020-08-04] MEDS: DOCUSATE 100 MG CAP PO SCH (08:05)
[2020-08-04 08:39] VITALS: RESP 18
[2020-08-04] MEDS ORDERED: SIMETHICONE 40 MG/0.6 ML DROPS 2,000 MG/30 ML BOTTLE PO SCH (12:00)
[2020-08-04 12:31] LABS: Basophils % (A) 0 %; Eosinophils # (A) 0.1 k/uL (0-0.7); Eosinophils % (A) 1 %; HCT 28.8 % (34.0-46.0); HGB 9.4 gm/dL (11.4-16.0); Lymphocytes # (A) 2.3 k/uL (1.0-4.8); Lymphocytes % (A) 16 %; MCH 26.9 pg (25.0-35.0); MCHC 32.6 g/dL (31.0-37.0); MCV 82.6 fL (80.0-100.0); Mean Platelet Volume 7.2; Monocytes % (A) 7 %; Neutrophils # (A) 10.7 k/uL (1.3-7.7); Neutrophils % (A) 75 %; Platelet Count 258 k/uL (150-450); RBC 3.48 m/uL (3.80-5.40); RDW 14.7 % (11.5-15.5); WBC 14.3 k/uL (3.8-10.6)
--- NOTE | 2020-08-04 12:50 | P.PN ---
Subjective Progress Note Date: 08/04/20 CHIEF COMPLAINT: Cholecystitis with choledocholithiasis HISTORY OF PRESENT ILLNESS: The patient is a 35-year-old female status post robotic cholecystectomy for acute hydrops cholecystitis with cystic duct obstruction. No passage of flatus. She is tolerating diet. REVIEW OF ORGAN SYSTEM: No nausea or vomiting. No chest pain. No shortness of breath. PHYSICAL EXAM: VITAL SIGNS: Afebrile vital signs stable GENERAL: Well-developed pleasant in no acute distress. HEENT: No scleral icterus. Extraocular movements grossly intact. Moist buccal mucosa. CHEST: Unlabored respirations. Equal bilateral excursions. CARDIOVASCULAR: Regular rate regular rhythm rhythm. ABDOMEN: Mild distention. Incisions clean dry and intact. No ecchymosis. MUSCULOSKELETAL: No clubbing, cyanosis, or edema. NEURO: Cranial nerves II to XII within normal limits. No focal or lateralizing signs. PSYCH: Alert and oriented to person, place and time. SKIN: Well-perfused good skin turgor. LABS: Liver enzymes continue to decline and improve. Postsurgical expected stress response of elevated WBC of 14,000 from 10,000. ASSESSMENT: 1. Acute cholecystitis with cystic duct obstruction 2. Common bile duct obstruction due to external compression from gallstone 3. Transaminitis 4. Iron deficiency anemia PLAN: 1. Repeat hemoglobin demonstrates hemoglobin stable. Patient's pre-existing dehydration artificially elevated hemoglobin. 2. LFTs continue to improve and we'll repeat as outpatient. Objective - Vital Signs Vital signs: Vital Signs Temp 98.0 F 08/04/20 08:15 Pulse 82 08/04/20 08:15 Resp 18 08/04/20 08:15 BP 113/73 08/04/20 08:15 Pulse Ox 95 08/04/20 08:15 Intake & Output 08/03/20 08/04/20 08/04/20 18:59 06:59 18:59 Intake Total 1210 Output Total 50 Balance 1160 Intake: IV 1150 Oral 60 Output: Estimated Blood Loss 50 Other: Voiding Method Toilet # Voids 1 - Labs CBC & Chem 7: 08/04/20 11:52 08/04/20 05:10 Labs: Abnormal Lab Results - Last 24 Hours (Table) 08/04/20 08/04/20 08/04/20 Range/Units 05:10 05:10 11:52 WBC 14.4 H 14.3 H (3.8-10.6) k/uL RBC 3.32 L 3.48 L (3.80-5.40) m/uL Hgb 9.1 L D 9.4 L (11.4-16.0) gm/dL Hct 27.5 L 28.8 L (34.0-46.0) % Neutrophils # 11.9 H 10.7 H (1.3-7.7) k/uL Glucose 115 H (74-99) mg/dL Calcium 8.3 L (8.4-10.2) mg/dL AST 104 H (14-36) U/L ALT 283 H (4-34) U/L Total Protein 5.8 L (6.3-8.2) g/dL Albumin 3.3 L (3.5-5.0) g/dL Assessment and Plan (1) Transaminitis Current Visit: Yes Status: Acute Code(s): R74.01 - ELEVATION OF LEVELS OF LIVER TRANSAMINASE LEVELS SNOMED Code(s): 465110062 (2) Cholecystitis Current Visit: Yes Status: Acute Code(s): K81.9 - CHOLECYSTITIS, UNSPECIFIED SNOMED Code(s): 02955465 (3) Cholelithiasis Current Visit: Yes Status: Acute Code(s): K80.20 - CALCULUS OF GALLBLADDER W/O CHOLECYSTITIS W/O OBSTRUCTION SNOMED Code(s): 974491547
[2020-08-04 14:15] VITALS: BP 148/88; PULSE 98; TEMP 98.4
--- NOTE | 2020-08-04 15:38 | P.DS ---
Providers Date of admission: 08/03/20 16:00 Expected date of discharge: 08/04/20 Attending physician: Amy Veloz Primary care physician: Stated None - Discharge Diagnosis(es) (1) Transaminitis Current Visit: Yes Status: Acute (2) Cholecystitis Current Visit: Yes Status: Acute (3) Cholelithiasis Current Visit: Yes Status: Acute Patient Condition at Discharge: Stable Plan - Discharge Summary New Discharge Prescriptions: New Ibuprofen [Motrin] 600 mg PO Q8HR PRN #30 tab PRN Reason: Pain Amoxic-Pot Clav 875-125Mg [Augmentin 875-125] 1 each PO Q12HR #10 tab Simethicone 40 mg/0.6 ml Drops [Mylicon Drops] 80 mg PO Q6HR PRN #30 ml PRN Reason: Abdominal Distention Acetaminophen Tab [Tylenol Tab] 1,000 mg PO Q6HR PRN #30 tablet PRN Reason: Pain Continue Multivitamins, Thera [Multivitamin (formulary)] 1 tab PO DAILY Magnesium Oxide 400 mg PO DAILY Ferrous Sulfate [Iron (65 MG Elemental)] 325 mg PO DAILY L.acidoph,Paracasei, B.lactis [Probiotic] 1 cap PO DAILY Discharge Medication List Ferrous Sulfate [Iron (65 MG Elemental)] 325 mg PO DAILY 08/02/20 [History] L.acidoph,Paracasei, B.lactis [Probiotic] 1 cap PO DAILY 08/02/20 [History] Magnesium Oxide 400 mg PO DAILY 08/02/20 [History] Multivitamins, Thera [Multivitamin (formulary)] 1 tab PO DAILY 08/02/20 [History] Acetaminophen Tab [Tylenol Tab] 1,000 mg PO Q6HR PRN #30 tablet 08/04/20 [Rx] Amoxic-Pot Clav 875-125Mg [Augmentin 875-125] 1 each PO Q12HR #10 tab 08/04/20 [Rx] Ibuprofen [Motrin] 600 mg PO Q8HR PRN #30 tab 08/04/20 [Rx] Simethicone 40 mg/0.6 ml Drops [Mylicon Drops] 80 mg PO Q6HR PRN #30 ml 08/04/20 [Rx] Follow up Appointment(s)/Referral(s): Amy Veloz MD [STAFF PHYSICIAN] - 08/08/20 None,Stated [Primary Care Provider] - 1-2 days Patient Instructions/Handouts: *Surgery [facility] - Scopalamine Patch Instructions Activity/Diet/Wound Care/Special Instructions: Recommend low-fat diet for the next 2 days. No lifting over 10 pounds in 2 weeks until August 17. May shower. No bath tub soaks for two weeks until August 17 Diet as tolerated. Use Tylenol, simethicone and ibuprofen or Aleve scheduled for the next 24-48 hours for best pain relief. Use ice along incisions for today to prevent swelling. Discharge Disposition: HOME SELF-CARE
== END 2020-08-04 17:08 | disposition home or self-care (01) | DRG 418 ==
LOC: EC 17:10 → 6PED 20:49 → OBSVTOIN 08-03 16:00
PROVIDERS: ADMIT Surgery Plastic and Reconstructive Surgery; ATTEND Surgery Plastic and Reconstructive Surgery
PROC: 0DNU4ZZ Release Omentum, Percutaneous Endoscopic Approach (ICD-10-PCS; principal; 2020-08-03 13:09)
PROC: 0FT44ZZ Resection of Gallbladder, Percutaneous Endoscopic Approach (ICD-10-PCS; principal; 2020-08-03 13:09)
PROC: 8E0W4CZ Robotic Assisted Procedure of Trunk Region, Percutaneous Endoscopic Approach (ICD-10-PCS; principal; 2020-08-03 13:09)
DX: K80.43 Calculus of bile duct with acute cholecystitis with obstruction (principal); K82.1 Hydrops of gallbladder; K80.01 Calculus of gallbladder with acute cholecystitis with obstruction; K82.8 Other specified diseases of gallbladder; D50.9 Iron deficiency anemia, unspecified; K66.0 Peritoneal adhesions (postprocedural) (postinfection); Z80.8 Family history of malignant neoplasm of other organs or systems; Z82.49 Family history of ischemic heart disease and other diseases of the circulatory system; Z87.891 Personal history of nicotine dependence; Z20.822 Contact with and (suspected) exposure to COVID-19; Z90.49 Acquired absence of other specified parts of digestive tract; Z90.79 Acquired absence of other genital organ(s)
CPT/HCPCS: 36415; 76705; 80053; 80074; 81001; 81025; 82150; 83690; 85025; 87635; 88304; 96374; 96375; 99285

== ENCOUNTER → 2020-08-11 | Outpatient (CLI) | payer OTHER ==
[2020-08-11 14:58] LABS: HCT 28.6 % (37.2-46.3); HGB 8.6 g/dL (12.0-15.0); MCH 26.2 pg (27.0-32.0); MCHC 30.1 g/dL (32.0-37.0); MCV 87.2 fL (80.0-97.0); Mean Platelet Volume 9.9 fL (9.5-12.2); Platelet Count 462 X 10*3/uL (140-440); RBC 3.28 X 10*6/uL (4.10-5.20); RDW 14.6 % (11.5-14.5); WBC 10.39 X 10*3/uL (4.50-10.00)
[2020-08-11 15:36] LABS: African American GFR (CKD) 136.9 (60.0-200.0); Albumin/Globulin Ratio 1.6 (1.60-3.17); Anion Gap 7.4 mmol/L (4.00-12.00); Carbon Dioxide 28.6 mmol/L (21.6-31.8); Globulin 2.5 g/dL (1.6-3.3); Non-African American GFR(CKD) 118.1 (60.0-200.0); Potassium 4.5 mmol/L (3.5-5.5); Total Bilirubin 0.7 mg/dL (0.2-1.2); Total Protein 6.5 g/dL (6.2-8.2)
== END | disposition home or self-care (01) ==
LOC: LABWHC1 08:24
PROVIDERS: ATTEND Surgery Plastic and Reconstructive Surgery
DX: K80.01 Calculus of gallbladder with acute cholecystitis with obstruction (principal)
CPT/HCPCS: 36415; 80053; 85027

== ENCOUNTER → 2020-10-02 | Outpatient (CLI) | payer OTHER ==
--- NOTE | 2020-10-03 13:19 | MM ---
Reason for exam: screening (asymptomatic). Baseline mammogram. History: Family history of breast cancer in maternal grandmother at age 60. Physical Findings: Nurse did not find any significant physical abnormalities on exam. MG Screening Mammo w CAD Bilateral CC and MLO view(s) were taken. There are scattered fibroglandular densities. ASSESSMENT: Negative, BI-RAD 1 RECOMMENDATION: Routine screening mammogram of both breasts in 1 year.
== END ==
LOC: RADMAMWWP 07:05
PROVIDERS: ATTEND Obstetrics & Gynecology
DX: Z12.31 Encounter for screening mammogram for malignant neoplasm of breast (principal); Z80.3 Family history of malignant neoplasm of breast
CPT/HCPCS: 77067

== ENCOUNTER → 2020-11-06 | Outpatient (CLI) | payer OTHER ==
--- NOTE | 2020-11-06 08:51 | US ---
EXAMINATION TYPE: US thyroid st tissue head/neck DATE OF EXAM: 11/06/2020 COMPARISON: NONE CLINICAL HISTORY: 35-year-old female E01.0 Thyromegaly, R63.5 Weight gain. Enlarged thyroid, weight g ain TECHNIQUE: Multiple sonographic images of the thyroid gland are obtained. FINDINGS: GLAND SIZE: Right Lobe: 5.6 x 1.9 x 2.2 cm Overall Parenchyma: homogenous Left Lobe: 5.9 x 2.5 x 2.0 cm Overall Parenchyma: heterogeneous Isthmus Thickness: 0.3 cm NODULES RIGHT: # of nodules measured on right: 2 1. 1.6 X 1.0 x 1.5 cm, lower, mixed cystic and solid, hypoechoic nodule, TR3 nodule which is wider than tall, with smooth margins, without echogenic foci. Prior size: No prior 2. 1.3 X 0.7 x 0.9 cm, lower, mixed cystic and solid, hypoechoic TR 3 nodule, which is wider than t all, with ill-defined margins, without echogenic foci. Prior size: No prior LEFT: # of nodules measured on left: Multiple, the 3 largest are measured. 1. 2.3 X 1.9 x 2.0 cm, lower, solid or almost completely solid, hypoechoic TR 4 nodule, which is wi gabriele than tall, with smooth margins, without echogenic foci. Prior size: No prior 2. 1.4 X 1.0 x 1.3 cm, lower located just above nodule #1, solid or almost completely solid, hypoe choic TR4 nodule, which is wider than tall, with smooth margins, without echogenic foci. Prior size: No prior 3. 1.2 X 0.7 x 0.9 cm, mid, solid or almost completely solid, hypoechoic TR4 nodule, which is wider than tall, with smooth margins, without echogenic foci. Prior size: No prior Bilateral neck scanned, no evidence of lymphadenopathy. Multiple nodules bilaterally. IMPRESSION: 1. Thyromegaly, suspect multinodular goiter. 2. A couple mixed solid cystic, TR3 nodules on the right measuring up to 1.6 cm. These can be followe d. FNA if they reach 2.5 cm. 3. Multiple solid nodules on the left with the 3 largest being measured. The dominant TR4, 2.3 cm low er pole nodule can be sampled. The other TR4 nodules can be followed. FNA if they reach 1.5 cm.
== END | disposition home or self-care (01) ==
LOC: RADUSWWP 07:56
PROVIDERS: ATTEND Family Medicine
DX: E01.0 Iodine-deficiency related diffuse (endemic) goiter (principal); E04.2 Nontoxic multinodular goiter
CPT/HCPCS: 76536

== ENCOUNTER → 2020-11-15 | Outpatient (CLI) | payer OTHER ==
--- NOTE | 2020-11-15 10:42 | CT ---
EXAMINATION TYPE: CT abdomen pelvis w con DATE OF EXAM: 11/15/2020 COMPARISON: NONE HISTORY: 35-year-old female K40.90, right groin hernia, right thigh swelling TECHNIQUE: Contiguous axial scanning of the abdomen and pelvis following administration of 100 ml Iso janelle 300 IV contrast. Delayed images through the kidneys and coronal/sagittal reconstructions perform ed. CT DLP: 1288.2 mGycm Automated exposure control for dose reduction was used. FINDINGS: Heart normal size without pericardial effusion. Tiny hiatal hernia noted. Lung bases clear without pl eural effusion. Indeterminant hypodense lesion measuring 2.8 cm posterior inferior right liver lobe, probable cyst. T his was not identified on the ultrasound of 08/02/2020. Three-month follow-up ultrasound recommended w [facility] particular attention to this area. If successfully visualized on ultrasound, it can be followed w ith that modality. Portal venous system is patent. No biliary ductal dilatation. Cholecystectomy clips. Adrenal glands, kidneys, and pancreas within normal limits. Spleen borderline enlarged at 13.7 cm. No dilated small bowel, free fluid, free air. Tiny periumbilical hernia. No mesenteric or retroperito gabriela lymphadenopathy. Moderate stool within the cecum. Remainder of the colon is largely collapsed. No pericolonic inflamma tory change. Surgical clip adjacent to the right ovary. Uterus is anteverted but retroflexed. There is a 3.0 cm pa raovarian cyst on the left which can be reassessed in 6-8 weeks with ultrasound. No abnormal fluid co llection the pelvis or pelvic lymphadenopathy. There is a lipomatous lesion extending along the superficial aspect of the iliacus within the pelvis and then the iliopsoas and then continuing along the posterior margin of the femoral neurovascular bu ndle into the upper thigh. This spans up to 24.2 cm craniocaudal (sagittal image 36), up to 9.3 cm AP (axial image 84), and up to 11.9 cm wide (coronal image 30). It appears relatively simple without an y internal nodularity. Findings internal septation may be present along the inferior aspect, coronal image 31. Bones: Anterior femoral head neck junction osseous excrescences can contribute to femoral acetabular impingement syndrome at the hips. Correlate for any chronic hip pain. Mild facet arthropathy lower chastity mbar spine. IMPRESSION: 1. LARGE FAT DENSITY MASS MEASURING 24.2 X 11.9 X 9.3 CM EXTENDING FROM WITHIN THE PELVIS OVERLYING T HE ILIACUS MUSCLE AND DOWN ALONG THE SUPERFICIAL ASPECT OF THE ILIOPSOAS AND INTO THE UPPER RIGHT THI GH POSTERIOR TO THE FEMORAL NEUROVASCULAR BUNDLE. WHILE THIS COULD REPRESENT A LIPOMA, THE LARGE SIZE AND MINIMAL THIN INTERNAL SEPTATION RAISES THE POSSIBILITY OF ATYPICAL LIPOMATOUS TUMOR VERSUS LOW-G RADE LIPOSARCOMA. CONSIDER ORTHOPEDIC ONCOLOGY REFERRAL FOR ANY ADDITIONAL WORKUP OR SURVEILLANCE. 2. INDETERMINATE 2.8 CM HYPODENSE LESION POSTERIOR INFERIOR RIGHT LIVER LOBE. NOT IDENTIFIED ON THE ULTRASOUND. A COMPLICATED CYST IS SUSPECTED. THREE-MONTH FOLLOW-UP ULTRASOUND WITH PARTICULA R ATTENTION TO THIS AREA TO REASSESS. IF STILL UNABLE TO IDENTIFY ON THE FOLLOW-UP ULTRASOUND, MRI MA Y MAY THEN BE CONSIDERED. 3. TINY HIATAL HERNIA.
== END | disposition home or self-care (01) ==
LOC: RADCTMAIN 08:03
PROVIDERS: ATTEND Family Medicine
DX: R19.00 Intra-abdominal and pelvic swelling, mass and lump, unspecified site (principal); K76.89 Other specified diseases of liver; K44.9 Diaphragmatic hernia without obstruction or gangrene; R16.1 Splenomegaly, not elsewhere classified; Z90.710 Acquired absence of both cervix and uterus
CPT/HCPCS: 74177; Q9967

== ENCOUNTER 2021-01-22 12:22 | Day surgery (SDC) | payer OTHER ==
[2021-01-22 12:38] VITALS: RESP 16; TEMP 98.3
[2021-01-22] MEDS ORDERED: ALPRAZolam 0.5 MG TAB PO STA (12:38)
[2021-01-22 13:30] VITALS: BP 162/116; PULSE 88
--- NOTE | 2021-01-22 14:21 | US ---
ULTRASOUND GUIDED FNA THYROID BIOPSY: CLINICAL HISTORY: Thyroid nodule FINDINGS: Patient presented with a markedly elevated blood pressure and the procedure was deferred. IMPRESSION: 1. Deferred thyroid biopsy.
== END 2021-01-22 13:50 | disposition home or self-care (01) ==
LOC: RADPROMAIN 12:22
PROVIDERS: ATTEND Surgery Plastic and Reconstructive Surgery
DX: E04.1 Nontoxic single thyroid nodule (principal)
CPT/HCPCS: 76536

== ENCOUNTER 2021-02-08 12:59 | Day surgery (SDC) | payer OTHER ==
[2021-02-08] MEDS ORDERED: ALPRAZolam 0.5 MG TAB PO PRN (13:11)
[2021-02-08 13:37] VITALS: PULSE 99; TEMP 98.6
[2021-02-08 14:16] VITALS: BP 146/90; RESP 14
--- NOTE | 2021-02-08 14:36 | US ---
ULTRASOUND GUIDED FNA THYROID BIOPSY: CLINICAL HISTORY: Left thyroid 2.3 cm nodule requested for biopsy FINDINGS: The procedure was explained to the patient. The risks, complications, benefits and alternatives were discussed and any questions were answered. Informed consent was obtained. Patient was placed supin e on the ultrasound table and prepped and draped in the usual sterile fashion. Utilizing a 25 gauge needle, five passes were made into the requested left thyroid nodule. Patient was stable throughout the procedure. Pathology is pending. All elements of maximal barrier technique were utilized. IMPRESSION: 1. Successful ultrasound guided FNA thyroid biopsy.
== END 2021-02-08 14:22 | disposition home or self-care (01) ==
LOC: RADPROMAIN 12:59
PROVIDERS: ATTEND Surgery Plastic and Reconstructive Surgery
DX: E04.1 Nontoxic single thyroid nodule (principal)
CPT/HCPCS: 10005; 88173; 88305

== ENCOUNTER → 2021-02-19 | Outpatient (CLI) | payer OTHER ==
--- NOTE | 2021-02-19 09:51 | US ---
EXAMINATION TYPE: US liver DATE OF EXAM: 02/19/2021 COMPARISON: CT 11/15/2020 US 08/02/20 CLINICAL HISTORY: K76.89 BENIGN LIVER CYST. History of recent cholecystectomy with CT after 11/15/2020 EXAM MEASUREMENTS: Liver Length: 16.8 cm Gallbladder Wall: Surgically absent CBD: 0.4 cm Right Kidney: 13.4x7.1x6.5 cm Pancreas: Tail obscured by overlying bowel gas Liver: Faint hypoechoic region adjacent right kidney. indeterminate if this correlates with previous CT Gallbladder: Surgically absent CBD: wnl Right Kidney: Echogenic foci 0.5cm mid IMPRESSION: Focal fatty sparing noted. Nonobstructing renal calculi.
== END | disposition home or self-care (01) ==
LOC: RADUSWWP 08:59
PROVIDERS: ATTEND Family Medicine
DX: N20.0 Calculus of kidney (principal); K76.89 Other specified diseases of liver
CPT/HCPCS: 76705

== ENCOUNTER → 2021-11-05 | Outpatient (CLI) | payer OTHER ==
[2021-11-05 18:52] LABS: ALT 14 U/L (8-44); AST 14 U/L (13-35)
== END | disposition home or self-care (01) ==
LOC: LABWHC1 12:47
PROVIDERS: ATTEND Dermatology
DX: B35.1 Tinea unguium (principal)
CPT/HCPCS: 36415; 84450; 84460

== ENCOUNTER → 2022-01-15 | Outpatient (CLI) | payer OTHER ==
--- NOTE | 2022-01-15 15:45 | US ---
EXAMINATION TYPE: US thyroid st tissue head/neck DATE OF EXAM: 01/15/2022 COMPARISON: There are ultrasound 11/06/2020, FNA thyroid 02/08/2021. CLINICAL HISTORY: E04.1 single nodule. Follow up thyroid nodules GLAND SIZE: Right Lobe: 6.1 x 2.4 x 2.8 cm Overall Parenchyma: homogenous Left Lobe: 6.7 x 2.8 x 2.2 cm Overall Parenchyma: heterogeneous Isthmus Thickness: 0.3 cm NODULES RIGHT: # of nodules measured on right: 1 1. 2.2 X 1.4 x 1.8 cm, lower , mixed cystic and solid, hypoechoic nodule, which is wider than tall, with smooth margins, without echogenic foci.TR-3. Prior size: 1.6 x 1.0 x 1.5 cm LEFT: # of nodules measured on left: 3 1. 2.5 X 2.0 x 2.1 cm, lower , solid or almost completely solid, isoechoic nodule, which is wider t simpson tall, with ill-defined margins, with echogenic foci. TR-4. Previous biopsy. Prior size: 2.3 x 1.9 x 2.0 cm 2. 1.3 X 1.4 x 1.6 cm, lower , solid or almost completely solid, hypoechoic nodule, which is wider than tall, with ill-defined margins, without echogenic foci. TR-4. Prior size: 1.4 x 1.0 x 1.3 cm 3. 0.8 X 0.9 x 0.7 cm, mid, solid or almost completely solid, hypoechoic nodule, which is wider vamsi n tall, with smooth margins, without echogenic foci. TR-4. Prior size: 1.2 x 0.7 x 0.9 cm ISTHMUS: # of nodules measured in the isthmus: 0 Bilateral neck scanned, no evidence of lymphadenopathy. IMPRESSION: Thyromegaly with slight increase in size of right thyroid lobe 2.2 cm nodule consistent with TR-3. Re maining left thyroid nodules are relatively stable. Follow-up ultrasound in one year is recommended.
== END | disposition home or self-care (01) ==
LOC: RADUSWWP 14:49
PROVIDERS: ATTEND Surgery Plastic and Reconstructive Surgery
DX: E04.2 Nontoxic multinodular goiter (principal)
CPT/HCPCS: 76536

== ENCOUNTER → 2022-06-24 | Outpatient (CLI) | payer OTHER ==
--- NOTE | 2022-06-24 10:40 | CA ---
Transthoracic Echo Report Name: Susanna Naranjo Age: 37 Gender: F : 1985 Exam Date: 06/24/2022 08:31 Exam Location: [facility] Ht (in): 67 Wt (lb): 230 Ordering Physician: Jam Prince MD Attending/Referring Phys: Jam Prince MD Media Production Manager Procedure CPT: Indications: I10 HTN Cardiac Hx: Technical Quality: Fair Contrast 1: Total Dose (mL): Contrast 2: Total Dose (mL): MEASUREMENTS (Male / Female) Normal Values 2D ECHO LV Diastolic Diameter PLAX 4.1 cm 4.2 - 5.9 / 3.9 - 5.3 cm LV Systolic Diameter PLAX 2.8 cm LV Fractional Shortening PLAX 31.3 % IVS Diastolic Thickness 1.3 cm 0.6 - 1.0 / 0.6 - 0.9 cm IVS Systolic Thickness 1.5 cm LVPW Diastolic Thickness 1.4 cm 0.6 - 1.0 / 0.6 - 0.9 cm LVPW Systolic Thickness 1.3 cm LV Relative Wall Thickness 0.6 RV Internal Dim ED PLAX 2.9 cm LVOT Diameter 2.0 cm LA Systolic Diameter LX 3.1 cm 3.0 - 4.0 / 2.7 - 3.8 cm LV Diastolic Volume MOD BP 98.8 cm??? 67 - 155 / 56 - 104 cm??? LV Systolic Volume MOD BP 44.7 cm??? 22 - 58 / 19 - 49 cm??? LV Ejection Fraction MOD BP 54.7 % >= 55 % LV Stroke Volume MOD BP 54.1 cm??? LV Diastolic Volume MOD 4C 85.1 cm??? LV Systolic Volume MOD 4C 44.4 cm??? LV Ejection Fraction MOD 4C 47.9 % LV Stroke Volume MOD 4C 40.7 cm??? LV Diastolic Length 4C 7.5 cm LV Systolic Length 4C 6.1 cm LV Diastolic Volume MOD 2C 98.7 cm??? LV Systolic Volume MOD 2C 44.5 cm??? LV Ejection Fraction MOD 2C 54.9 % LV Stroke Volume MOD 2C 54.2 cm??? LV Diastolic Length 2C 8.8 cm LV Systolic Length 2C 6.2 cm M-MODE Aortic Root Diameter MM 2.6 cm LA Systolic Diameter MM 3.2 cm LA Ao Ratio MM 1.2 MV E Point Septal Separation 0.7 cm AV Cusp Separation MM 1.4 cm DOPPLER AV Peak Velocity 150.4 cm/s AV Peak Gradient 9.1 mmHg LVOT Peak Velocity 110.9 cm/s LVOT Peak Gradient 4.9 mmHg AV Area Cont Eq pk 2.2 cm??? MV Deceleration [place] 436.5 cm/s??? MR Peak Velocity 372.9 cm/s MR Peak Gradient 55.6 mmHg Mitral E Point Velocity 94.2 cm/s Mitral A Point Velocity 68.4 cm/s Mitral E to A Ratio 1.4 MV Deceleration Time 215.9 ms MV E' Velocity 7.4 cm/s Mitral E to MV E' Ratio 12.8 TR Peak Velocity 87.0 cm/s TR Peak Gradient 3.0 mmHg Right Ventricular Systolic Press 8.0 mmHg PV Peak Velocity 99.9 cm/s PV Peak Gradient 4.0 mmHg FINDINGS Left Ventricle Left ventricular ejection fraction is estimated at 55-60 %. Mild concentric left ventricular hypertrophy. Normal basal systolic function. Right Ventricle Normal right ventricular size and function. Right Atrium Normal right atrial size. Left Atrium Normal left atrial size. Myxomatous IAS Mitral Valve Structurally normal mitral valve. [id number] mitral regurgitation. Aortic Valve Trileaflet aortic valve. No aortic stenosis. No aortic regurgitation. Tricuspid Valve Trace tricuspid regurgitation. Pulmonic Valve Pulmonic valve not well visualized. Pericardium Normal pericardium. No pericardial effusion. Aorta Normal size aortic root and proximal ascending aorta. CONCLUSIONS Normal LV size and systolic function. Mild to moderate mitral regurgitation, mild tricuspid regurgitation. No pulmonary hypertension. No pericardial effusion Previewed by: Dr. Saqib Darden MD (Electronically Signed) Final Date: 24 June 2022 10:39
== END | disposition home or self-care (01) ==
LOC: RADECHMAIN 08:14
PROVIDERS: ATTEND Family Medicine
DX: I08.1 Rheumatic disorders of both mitral and tricuspid valves (principal); I10 Essential (primary) hypertension
CPT/HCPCS: 93306

== ENCOUNTER → 2023-06-04 | Outpatient (CLI) | payer OTHER ==
--- NOTE | 2023-06-06 09:18 | US ---
EXAMINATION TYPE: US thyroid st tissue head/neck DATE OF EXAM: 06/04/2023 COMPARISON: 01/15/2022 CLINICAL INDICATION: Female, 38 years old with history of E04.2 NONTOXIC MULTINODULAR GOITER; thy nod ules GLAND SIZE: Right Lobe: 5.5 x 2.3 x 2.8 cm Overall Parenchyma: heterogenous Left Lobe: 5.6 x 2.3 x 2.3 cm Overall Parenchyma: heterogenous Isthmus Thickness: 2.6 mm NODULES RIGHT: # of nodules measured on right: 1 1. 2.8 X 1.8 x 2.3 cm, mid , mixed cystic and solid, isoechoic TR 3 nodule, which is wider than tomas l, with smooth margins, without echogenic foci. Prior size: 2.2 x 1.4 x 1.8 cm LEFT: # of nodules measured on left: 3 1. 1.7 X 1.4 x 2.0 cm, lower , solid or almost completely solid, hypoechoic TR 4 nodule, which is w ider than tall, with smooth margins, without echogenic foci. Prior size: 2.5 x 2.0 x 2.1 cm 2. 1.3 X 1.0 x 1.4 cm, lower , solid or almost completely solid, hypoechoic TR 4 nodule, which is wider than tall, with smooth margins, without echogenic foci. Prior size: 1.3 x 1.4 x 1.6 cm 3. .9 X .5 x .8 cm, upper , cystic or almost completely cystic, anechoic TR2 nodule, which is wider than tall, with smooth margins, without echogenic foci. Prior size: .8 x .9 x .7 cm ISTHMUS: # of nodules measured in the isthmus: 0 Bilateral neck scanned, no evidence of lymphadenopathy. IMPRESSION: 1. Multinodular goiter. 2. Dominant TR3 nodule in the right lobe is larger at 2.8 x 2.3 cm versus 2.2 x 1.7 mm, previously. F NA can be considered. 3. A couple TR4 nodules in the left lobe are either stable or slightly smaller measuring 2.0 cm and 1 .4 cm (versus 2.5 and 1.6 cm, previously, respectively). 2017 ACR TI-RADS LEVEL: TR-RADS 3 - Mildly Suspicious: Follow if > 1.5 cm, FNA if > 2.5 cm 2017 ACR TI-RADS LEVEL: TR-RADS 4 - Moderately Suspicious: Follow if > 1 cm, FNA if > 1.5 cm
== END | disposition home or self-care (01) ==
LOC: RADUSWWP 16:18
PROVIDERS: ATTEND Internal Medicine
DX: E04.2 Nontoxic multinodular goiter (principal)
CPT/HCPCS: 76536

== ENCOUNTER → 2023-06-30 | Outpatient (CLI) | payer OTHER ==
[2023-06-30 16:34] LABS: T4, Free (Free Thyroxine) 1.32 ng/dL (0.80-1.80)
== END | disposition home or self-care (01) ==
LOC: LABWHC1 09:21
PROVIDERS: ATTEND Internal Medicine
DX: E04.2 Nontoxic multinodular goiter (principal); E55.9 Vitamin D deficiency, unspecified
CPT/HCPCS: 36415; 82306; 84439; 84443

== ENCOUNTER → 2023-07-24 | Outpatient (CLI) | payer OTHER ==
[2023-07-24 14:52] LABS: Hepatitis B Surface Antigen Nonreactive (Nonreactive); Hepatitis C IgG Antibody Nonreactive (Nonreactive)
--- NOTE | 2023-07-24 15:03 | US ---
EXAMINATION TYPE: US liver DATE OF EXAM: 07/24/2023 COMPARISON: 02/19/2021 CLINICAL INDICATION: Female, 38 years old with history of K769 LIVER DISEASE; Abnormal LFT's TECHNIQUE: Multiple sonographic images of the right upper quadrant are obtained. FINDINGS: EXAM MEASUREMENTS: Liver Length: 18.5 cm CBD: 0.4 cm Right Kidney: 11.3 x 4.8 x 5.5 cm Pancreas: Obscured by bowel gas Liver: Enlarged, heterogeneous, lesion visualized on prior CT and MRI unable to be appreciated by ul trasound Gallbladder: Surgically absent Evidence for sonographic Goodman's sign: No CBD: wnl Right Kidney: wnl, lower pole gassed out IMPRESSION: 1. Mild hepatomegaly but no focal liver mass. Subcapsular lesion in the right lobe of the liver seen on prior CT and MRI not appreciated on the current study. Mild steatosis 2. Cholecystectomy. 3. Limited evaluation the right kidney and pancreas due to bowel gas.
[2023-07-24 15:44] LABS: Blood Urea Nitrogen 12.6 mg/dL (9.0-27.0); Calcium 9.5 mg/dL (8.7-10.3); Carbon Dioxide 23.7 mmol/L (21.6-31.8); Chloride 104 mmol/L (96-109); Glucose 126 mg/dL (70-110); Potassium 4.4 mmol/L (3.5-5.5); Sodium 139 mmol/L (135-145); Total Protein 6.9 g/dL (6.2-8.2)
[2023-07-24 15:45] LABS: ALT 17 U/L (8-44); AST 16 U/L (13-35); Albumin 4.3 g/dL (3.8-4.9); Albumin/Globulin Ratio 1.65 Ratio (1.60-3.17); Alkaline Phosphatase 145 U/L (41-126); Globulin 2.6 g/dL (1.6-3.3); Total Bilirubin 0.4 mg/dL (0.3-1.2)
== END | disposition home or self-care (01) ==
LOC: RADUSWWP 08:01
PROVIDERS: ATTEND Internal Medicine Gastroenterology
DX: R16.0 Hepatomegaly, not elsewhere classified (principal); R14.3 Flatulence; K76.9 Liver disease, unspecified; R74.8 Abnormal levels of other serum enzymes
CPT/HCPCS: 36415; 76705; 80053; 83516; 86803; 87340

== ENCOUNTER → 2024-02-11 | Outpatient (CLI) | payer OTHER ==
--- NOTE | 2024-02-11 15:52 | US ---
EXAMINATION TYPE: US thyroid st tissue head/neck DATE OF EXAM: 02/11/2024 COMPARISON: most recent: 06/04/23 CLINICAL INDICATION: Female, 38 years old with history of E04.2 nontoxic Multinodular goiter; follow up on nodules TECHNIQUE: Grayscale and color Doppler imaging of the thyroid gland. FINDINGS: GLAND SIZE: Right Lobe: 5.0 x 2.2 x 2.3 cm Overall Parenchyma: homogeneous Left Lobe: 5.2 x 2.0 x 2.2 cm Overall Parenchyma: homogeneous Isthmus Thickness: 0.26 cm NODULES RIGHT: # of nodules measured on right: 2 1. 1.9 X 1.5 x 1.3 cm, mid mid, Prior size: 2.8 x 2.3 x 1.8 cm TIRADS Score: 4 TIRADS Category 4: Composition: Solid or almost completely solid (2 points). Echogenicity: Hypoechoic (2 points). Shape: Wider than tall (0 points). Margin: Smooth (0 points). Echogenic foci: None or large comet-tail artifacts (0 points) Recommendation: If >1.5cm: FNA; If >1cm: Follow up at 1,2, 3,5 years 2. 1.4 X 1.3 x 1.2 cm, mid mid, TIRADS Score: 4 TIRADS Category 4: Composition: Solid or almost completely solid (2 points). Echogenicity: Hypoechoic (2 points). Shape: Wider than tall (0 points). Margin: Smooth (0 points). Echogenic foci: None or large comet-tail artifacts (0 points) Recommendation: If >1.5cm: FNA; If >1cm: Follow up at 1,2, 3,5 years LEFT: # of nodules measured on left: 3 1. 2.2 X 1.9 x 1.4 cm, mid mid, TIRADS Score: 3 TIRADS Category 3: Composition: Solid or almost completely solid (2 points). Echogenicity: Hyperechoic or isoechoic (1 point). Shape: Wider than tall (0 points). Margin: Smooth (0 points). Echogenic foci: None or large comet-tail artifacts (0 points) Recommendation: If >2.5cm: FNA; If >1.5cm: Follow up at 1,3,5 years 2. 1.8 X 1.2 x 1.0 cm, mid medial, TIRADS Score: 4 TIRADS Category 4: Composition: Solid or almost completely solid (2 points). Echogenicity: Hypoechoic (2 points). Shape: Wider than tall (0 points). Margin: Smooth (0 points). Echogenic foci: None or large comet-tail artifacts (0 points) Recommendation: If >1.5cm: FNA; If >1cm: Follow up at 1,2, 3,5 years 3. 2.7 X 3.0 x 2.6 cm, lower mid, Prior size: 2.5 x 2.1 x 2.0 cm TIRADS Score: 4 TIRADS Category 4: Composition: Solid or almost completely solid (2 points). Echogenicity: Hypoechoic (2 points). Shape: Wider than tall (0 points). Margin: Smooth (0 points). Echogenic foci: None or large comet-tail artifacts (0 points) Recommendation: If >1.5cm: FNA; If >1cm: Follow up at 1,2, 3,5 years Multiple nodules seen in left lobe. Difficult to differentiate which nodules were previously evaluate d. ISTHMUS: # of nodules measured in the isthmus: 0 Bilateral neck scanned, no evidence of lymphadenopathy. IMPRESSION: Multiple thyroid nodules bilaterally as described above. Some meet criteria for fine-needle aspiratio n if not previously performed. [facility], , 02/11/2024 3:50 PM
== END | disposition home or self-care (01) ==
LOC: RADUSWWP 14:51
PROVIDERS: ATTEND Internal Medicine
DX: E04.2 Nontoxic multinodular goiter (principal)
CPT/HCPCS: 76536